=== PATIENT | female | born 1965 | race Caucasian/White ===

== ENCOUNTER 2024-07-13 06:24 | Day surgery (SDC) | payer BC, SELFPAY ==
[2024-06-23 07:40] VITALS: BMI 21.4
[2024-06-23 09:53] LABS: Hematocrit 33.5 % (37.0-47.0); Hemoglobin 11.9 g/dL (12.0-16.0); Mean Corp Hgb Conc. 35.5 g/dL (33.0-37.0); Mean Corpuscular Hgb 37.1 pg (27.0-31.0); Mean Corpuscular Volume 104.4 fL (81.0-99.0); Mean Platelet Volume 11.6 fL (7.4-10.4); Platelet Count 324 10^3/uL (130-400); Red Blood Cell Count 3.21 10^6/uL (4.20-5.40); Red Cell Dist. Width 17.4 % (11.5-14.5); White Blood Cell Count 5.9 10^3/uL (4.8-10.8)
[2024-06-23 10:53] LABS: Blood Urea Nitrogen 16 mg/dl (7-17); Calcium 8.9 mg/dl (8.4-10.2); Carbon Dioxide 26 mmol/L (22-30); Chloride 107 mmol/L (98-107); Estimated Creatinine Clearance 54 ml/min; Glucose 101 mg/dl (70-99); Potassium 4.3 mmol/L (3.5-5.1); Sodium 144 mmol/L (135-145); eGFR > 60.00
[2024-07-13] VITALS (11 sets, daily range): BP systolic 84–127; BP diastolic 51–78; BMI 21.4
[2024-07-13] MEDS: NORMOSOL-R/PLASMALYTE-A 1000 IV (09:26)
[2024-07-13] MEDS: TYLENOL 1000 MG PO (09:26)
[2024-07-13] MEDS: DILAUDID 0.5 MG IV (15:23)
[2024-07-13] MEDS: ROXICODONE 5 MG PO (16:35)
== END 2024-07-13 16:57 | disposition home or self-care (01) ==
LOC: SDS 06:24
PROVIDERS: ATTENDING PHYSICIAN Otolaryngology; FAMILY PHYSICIAN Family Medicine
DX: D11.9 Benign neoplasm of major salivary gland, unspecified (principal); D11.0 Benign neoplasm of parotid gland
CPT/HCPCS: 42415; 88307; 80048; 85027; 93005; C1776; C9250